=== PATIENT | female | born 1950 | race Caucasian/White ===

== ENCOUNTER → 2016-09-26 | Day surgery (SDC) | payer MEDICARE ==
--- NOTE | 2016-09-21 15:07 | HP ---
PREOPERATIVE HISTORY AND PHYSICAL: DATE OF ADMISSION/SURGERY: 09/26/16 [facility] DATE OF OFFICE VISIT/ENCOUNTER: 09/20/16 ATTENDING SURGEON: Jessenia Torres MD FOUR SLIDE MACHINE SETTER: Dr. Toro. PROCEDURE: Right carpal tunnel release. CHIEF COMPLAINT: Right hand numbness and tingling. HISTORY OF PRESENT ILLNESS: This is a 66-year-old female, who has been experiencing numbness and tingling in her right hand for several months now. She had a recent EMG/nerve conduction study, which showed moderate carpal tunnel syndrome on the right. She had her left carpal tunnel release a number of years ago and has done well with that. Symptoms are bad enough now in the right hand that she would like to proceed with surgery for that wrist as well. She rates her symptoms as 8/10 at their worst. There has been no injury. The patient has a history of ventricular tachycardia/arrhythmia. She recently saw her graphic arts technician, Dr. Toro, who felt it was quite acceptable for her to proceed with surgery on her right wrist. PAST MEDICAL HISTORY: 1. History of ventricular tachycardia/arrhythmia. 2. Anxiety. 3. Factor V Leiden. 4. History of pulmonary embolism in 1998. 5. Hypothyroidism. 6. Retinopathy. 7. Gout. PAST SURGICAL HISTORY: 1. Left carpal tunnel release in 2010. 2. Thyroid biopsy in 1976. 3. in 1974. 4. Left middle finger cyst excision. 5. Right forearm lumpectomy. CURRENT MEDICATIONS: 1. Aspirin 81 mg daily. 2. Buspirone HCl 10 mg b.i.d. 3. Centrum Silver daily. 4. Ibuprofen 600 mg t.i.d. p.r.n. 5. Lexapro 20 mg daily. 6. Retin-A 0.025% topically every 2 hours p.r.n. 7. Synthroid 25 mcg daily. 8. Trazodone HCl 100 mg q.h.s. 9. Verapamil HCl ER 180 mg daily. 10. Vitamin D3 Super Strength 2000 units daily. ALLERGIES: MORPHINE and THALLIUM, reactions unknown/unclear. FAMILY MEDICAL HISTORY: Breast cancer and multiple sclerosis. 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 She is a former smoker, quit in 1979. Prior to that, she was smoking a pack per day. Denies illicit drug use. Admits to alcohol use on regular occasion, generally 1 drink per night. REVIEW OF SYSTEMS: General: Negative for fevers, chills, or night sweats. No known anesthesia problems. HEENT: Negative for headache, lightheadedness, or syncopal episodes. Integumentary: Negative for abrasions, lesions, or open wounds. Cardiothoracic: Positive for history of ventricular tachycardia, arrhythmia. Negative for chest pain or edema. Negative for hypertension. Pulmonary: Positive for history of PE in 1998. Negative for shortness of breath with exertion, chronic cough, or COPD. GI: Negative for nausea, vomiting , diarrhea, constipation, or GERD. : Negative for nocturia, urinary frequency , urgency, history of UTIs, or kidney problems. Musculoskeletal: Positive for current complaint and intermittent back pain and gout. Neurological: Positive for anxiety/depression. Negative for history of seizure, stroke, or epilepsy. Endocrine: Positive for hypothyroidism. Negative for diabetes. Hematologic: Positive for factor V Leiden. Negative for easy bruising, anemia, or excessive bleeding. Positive for history of DVT/PE. Infectious Disease: Negative for history of MRSA, hepatitis C, HIV. PHYSICAL EXAMINATION GENERAL: Well-developed, well-nourished, 66-year-old female, in no acute distress. VITAL SIGNS: Height 5 feet 5-1/4 inches, weight pounds, pulse rate 98, blood pressure 137/81. HEENT: Normocephalic, atraumatic. Pupils are equal, round, and reactive to light and accommodation. Extraocular movements are intact. NECK: Supple. No palpable lymph nodes. Throat is clear. PULMONARY: Lungs are clear to auscultation bilaterally. No wheezes, rales, or rhonchi. CARDIOTHORACIC: Regular rate and rhythm. No murmurs, rubs, or gallops. No edema. ABDOMEN: Positive bowel sounds, soft, nontender. MUSCULOSKELETAL: On exam of her right upper extremity, there is mild thenar wasting. She has a positive Phalen's test and a positive Tinel's test. There is weakness with thumb abduction. She has good motion in her fingers. Sensation is intact to light touch. NEUROLOGICAL: Alert and oriented x3. Cranial nerves II through XII are intact. Sensation is intact to light touch. DIAGNOSTIC STUDIES: EMG/nerve conduction studies shows moderate carpal tunnel syndrome on the right. IMPRESSION: Right carpal tunnel syndrome. PLAN: The patient is scheduled to undergo a right carpal tunnel release with Dr. Torres on 09/26/16. She will return to the office 10 to 14 days postop for followup and suture removal. A prescription for Ultracet was e-scribed to the patient's pharmacy for postoperative pain management. JENARO DSOUZA [id number]/[facility] #: [id number] MTDD
[~2016-09-26] MED LIST: Buffered Lidocaine 1% SYR 3ML* 3 ML/SYR SYRINGE INTRADERM ONE; Buffered Lidocaine 1% SYR 3ML* 3 ML/SYR SYRINGE ONE; Lidocaine 1% INJ* 10 MG/ML 30 ML SDV ONE; Midazolam* 1 MG/ML 2 ML VIAL (2 MG) ONE; fentaNYL* 50 MCG/ML 2 ML VIAL (100 MCG VIAL) ONE
[2016-09-26 10:37] VITALS: BP 138/74
--- NOTE | 2016-09-26 13:43 | OP ---
DATE OF OPERATION: 09/26/16 [facility] DATE OF : 46 SURGEON: Jessenia Torres MD COAL INSPECTOR: JENARO Dela Cruz ANESTHESIOLOGIST: Kenyon Juares MD ANESTHESIA: Local MAC. PRE-OP DIAGNOSIS: Right carpal tunnel syndrome. POST-OP DIAGNOSIS: Right carpal tunnel syndrome. OPERATIVE PROCEDURE: Right carpal tunnel release. INDICATIONS: Pushpa is a 66-year-old female with painful numbness and tingling in the median nerve distribution of her right hand. She presents for right carpal tunnel release. ESTIMATED BLOOD LOSS: Zero. TOURNIQUET TIME: 5 minutes. DESCRIPTION OF PROCEDURE: The patient was brought to the operating room, was given a sedation anesthetic and a local infiltration of 10 cc of 1% plain lidocaine in the palm of her right hand. The skin of her right hand and forearm was prepped and draped in the usual sterile fashion. The hand and forearm were exsanguinated and the tourniquet elevated to 250 mmHg. A longitudinal incision was made in the palm in line with the ring finger, dissected bluntly through the subcutaneous tissue down to the transverse carpal ligament. The ligament was divided sharply with a knife and then more proximally with the scissors. The nerve was dissected free from the surrounding tissue and there was an area of significant compression at the midportion of the ligament. The wound was irrigated and the skin edges reapproximated with 4-0 nylon suture and the wound was dressed with Xeroform, 4x4, Webril, and an Jeremy wrap. The patient tolerated the procedure well and was brought to the recovery room in good condition. [id number]/[facility] #: [id number] MTDD
== END | disposition home or self-care (01) ==
LOC: OREAST 08:23
PROVIDERS: ATTEND Orthopaedic Surgery
DX: G56.01 Carpal tunnel syndrome, right upper limb (principal); I47.2 Ventricular tachycardia; D68.51 Activated protein C resistance; E03.9 Hypothyroidism, unspecified; Z86.711 Personal history of pulmonary embolism
CPT/HCPCS: J2250; J3010